=== PATIENT | female | born 1955 | race Caucasian/White ===

== ENCOUNTER 2020-12-18 16:14 | Inpatient (IN) ==
[2020-12-18 17:00] LABS: ABS Lymphocytes 0.5 10^3/ul (1.0-4.8); ABS Monocytes 0.4 10^3/ul (0-0.8); ABS Neutrophils 13.6 10^3/ul (1.5-7.7); Hematocrit 30 % (35-47); Hemoglobin 10.1 g/dL (12.0-16.0); Lymphocyte % 3.5 %; Mean Corpuscular HGB Conc 33 g/dL (31-36); Mean Corpuscular Hemoglobin 31 pg (27-31); Mean Corpuscular Volume 92 fL (80-97); Mean Platelet Volume 7.5 fL (7.4-10.4); Platelet Count 423 10^3/uL (150-450); Red Blood Count 3.29 10^6 /uL (3.70-4.87); Red Cell Distribution Width 14 % (10-15); White Blood Count 14.6 10^3/uL (3.5-10.8)
[2020-12-18 17:42] LABS: Albumin 3.3 g/dL (3.2-5.2); Albumin/Globulin Ratio 0.8 (1-3); C Reactive Protein 214.38 mg/L (<8.01); Calcium 9.4 mg/dL (8.6-10.3); Total Bilirubin 0.6 mg/dL (0.2-1.0); Total Protein 7.3 g/dL (6.4-8.9)
[2020-12-18] MEDS ORDERED: Morphine 4 MG/ML VIAL (1 ml) IV ONE ×2 (19:05→22:57)
[2020-12-18 19:45] LABS: Erythrocyte Sed Rate 95 mm/Hr (0-29)
[2020-12-18] MEDS ORDERED: Gadoteridol (CONTRAST) 279.3 MG/ML 10 ML IV ONE (20:33)
[2020-12-18] MEDS ORDERED: Vancomycin 1,500 MG in NS 0.9% 250 ml 250 ML IVPB ONE (22:09)
[2020-12-18] MEDS ORDERED: Piperacillin/Tazobac ADVAN 3.375 GM in NS 0.9% 100 ml BAG 100 ML IV ONE (22:10)
[2020-12-18] MEDS ORDERED: NS 0.9% 250 ml 250 ML ONE (22:21)
[2020-12-18] MEDS ORDERED: Vancomycin per Pharmacy 1 EA NOTE FOLLOW UP SCH (23:45)
[2020-12-18] MEDS ORDERED: NS 0.9% 1000 ml BAG 1,000 ML IV SCH (23:45)
[2020-12-18] MEDS ORDERED: Ondansetron 4 mg VIAL 2 MG/ML 2 ml VIAL IV PRN (23:46)
[2020-12-18] MEDS ORDERED: Vancomycin 1,000 MG in NS 0.9% 250 ml 250 ML IVPB ONE (23:46)
[2020-12-19] LABS: HIV 4th Generation Nonreactive (Nonreactive)
[2020-12-19] MEDS: Morphine 2 MG/ML SYRINGE IV PRN ×3 (00:46→20:03)
[2020-12-19] MEDS ORDERED: Vancomycin 1000 MG in NS 0.9% 250 ML IVPB SCH (01:00)
[2020-12-19] MEDS: Cefepime 2 GM in Dextrose 2 GM/50 ML BAG IV SCH ×3 (02:17→19:45)
[2020-12-19] MEDS: Vancomycin 1000 MG in NS 0.9% 250 ML IVPB SCH ×3 (07:45→23:37)
[2020-12-19 08:43] LABS: ABS Lymphocytes 1.2 10^3/ul (1.0-4.8); ABS Monocytes 0.8 10^3/ul (0-0.8); ABS Neutrophils 9.7 10^3/ul (1.5-7.7); Eosinophil % 0.2 %; Hematocrit 26 % (35-47); Hemoglobin 8.9 g/dL (12.0-16.0); Lymphocyte % 9.8 %; Mean Corpuscular HGB Conc 34 g/dL (31-36); Mean Corpuscular Hemoglobin 31 pg (27-31); Mean Corpuscular Volume 91 fL (80-97); Mean Platelet Volume 7.4 fL (7.4-10.4); Platelet Count 363 10^3/uL (150-450); Red Cell Distribution Width 14 % (10-15); White Blood Count 11.7 10^3/uL (3.5-10.8)
[2020-12-19 08:53] LABS: INR 1.36 (0.82-1.09)
[2020-12-19] MEDS: oxyCODONE/Acetamin 5/325 mg TAB PO PRN ×3 (08:55→22:06)
[2020-12-19 08:56] LABS: Calcium 8.7 mg/dL (8.6-10.3); EGFR African American 107.6 (>60); EGFR Non-African American 88.9 (>60); Potassium 3.5 mmol/L (3.5-5.0)
[2020-12-19 16:09] LABS: Total Iron Binding Capacity 202 mcg/dL (250-450); Transferrin 144 mg/dL (203-362)
[2020-12-19 16:13] LABS: Ferritin 123.7 ng/mL (11-307)
[2020-12-19 16:17] LABS: % Iron Saturation 10 % (15-55); Iron < 20 ug/dL (50-212); Unsaturated Iron Binding < 187 ug/dL
[2020-12-19 16:20] LABS: Folate 16.82 ng/mL (5.90-24.80)
[2020-12-19 16:21] LABS: Vitamin B12 686 pg/mL (180-914)
[2020-12-19] MEDS: HYDROmorphone 1 MG/1 ML SYRINGE IV SLOW PU PRN (22:04)
[2020-12-20] MEDS: HYDROmorphone 1 MG/1 ML SYRINGE IV SLOW PU PRN ×4 (01:39→13:31)
[2020-12-20] MEDS: Cefepime 2 GM in Dextrose 2 GM/50 ML BAG IV SCH ×3 (01:41→19:30)
[2020-12-20] MEDS: oxyCODONE/Acetamin 5/325 mg TAB PO PRN ×5 (05:13→23:30)
[2020-12-20] MEDS ORDERED: Vancomycin Trough Check NOTE FOLLOW UP ONE (07:30)
[2020-12-20] MEDS: Vancomycin 1000 MG in NS 0.9% 250 ML IVPB SCH ×3 (10:51→23:29)
[2020-12-21] MEDS: Cefepime 2 GM in Dextrose 2 GM/50 ML BAG IV SCH ×3 (02:17→18:22)
[2020-12-21] MEDS: HYDROmorphone 1 MG/1 ML SYRINGE IV SLOW PU PRN ×3 (02:18→17:25)
[2020-12-21] MEDS: oxyCODONE/Acetamin 5/325 mg TAB PO PRN ×5 (04:02→20:28)
[2020-12-21 04:56] LABS: ABS Eosinophils 0.1 10^3/ul (0-0.6); ABS Lymphocytes 1.3 10^3/ul (1.0-4.8); ABS Monocytes 0.9 10^3/ul (0-0.8); ABS Neutrophils 9.6 10^3/ul (1.5-7.7); Eosinophil % 1.2 %; Hematocrit 29 % (35-47); Hemoglobin 9.9 g/dL (12.0-16.0); Lymphocyte % 10.8 %; Mean Corpuscular HGB Conc 34 g/dL (31-36); Mean Corpuscular Hemoglobin 31 pg (27-31); Mean Corpuscular Volume 91 fL (80-97); Mean Platelet Volume 7.3 fL (7.4-10.4); Platelet Count 461 10^3/uL (150-450); Red Blood Count 3.19 10^6 /uL (3.70-4.87); Red Cell Distribution Width 14 % (10-15)
[2020-12-21 05:13] LABS: Calcium 8.9 mg/dL (8.6-10.3); EGFR African American 122.2 (>60); Magnesium 2.2 mg/dL (1.9-2.7); Potassium 3.4 mmol/L (3.5-5.0)
[2020-12-21] MEDS: Vancomycin 1000 MG in NS 0.9% 250 ML IVPB SCH ×3 (07:51→23:51)
[2020-12-21] MEDS ORDERED: fentaNYL 100 mcg/2 ml 50 MCG/ML VIAL ONE (12:10)
[2020-12-21] MEDS ORDERED: Magnesium Hydroxide LIQ 30 ML UDC PO PRN (14:06)
[2020-12-21] MEDS ORDERED: Senna TAB 8.6 mg TAB PO PRN (14:06)
[2020-12-21] MEDS ORDERED: Polyethylene Glycol 3350 17 GM PACKET PO PRN (14:06)
[2020-12-21 17:37] LABS: TB1 Ag minus Nil Result 0.01 IU/mL
[2020-12-21 17:44] LABS: QuantiferonTb Gold Plus Result Negative (Negative)
[2020-12-22] MEDS: oxyCODONE/Acetamin 5/325 mg TAB PO PRN ×5 (00:23→21:04)
[2020-12-22] MEDS: Cefepime 2 GM in Dextrose 2 GM/50 ML BAG IV SCH ×2 (01:40→10:16)
[2020-12-22] MEDS: HYDROmorphone 1 MG/1 ML SYRINGE IV SLOW PU PRN ×2 (05:38→15:08)
[2020-12-22] MEDS ORDERED: Vancomycin Trough Check NOTE FOLLOW UP ONE (07:30)
[2020-12-22 07:38] LABS: ABS Eosinophils 0.1 10^3/ul (0-0.6); ABS Monocytes 0.7 10^3/ul (0-0.8); ABS Neutrophils 6.7 10^3/ul (1.5-7.7); Eosinophil % 0.8 %; Hematocrit 29 % (35-47); Hemoglobin 10.1 g/dL (12.0-16.0); Lymphocyte % 11.6 %; Mean Corpuscular HGB Conc 35 g/dL (31-36); Mean Corpuscular Hemoglobin 31 pg (27-31); Mean Corpuscular Volume 91 fL (80-97); Mean Platelet Volume 7.4 fL (7.4-10.4); Platelet Count 468 10^3/uL (150-450); Red Blood Count 3.21 10^6 /uL (3.70-4.87); Red Cell Distribution Width 13 % (10-15); White Blood Count 8.4 10^3/uL (3.5-10.8)
[2020-12-22 07:48] LABS: Calcium 9.3 mg/dL (8.6-10.3); EGFR African American 119.9 (>60); EGFR Non-African American 99.1 (>60); Magnesium 2.2 mg/dL (1.9-2.7); Potassium 3.5 mmol/L (3.5-5.0)
[2020-12-22] MEDS: cefTRIAXone 2 GM ADDV.VIAL 2 GM in NS 0.9% 100 ml BAG 100 ML IV SCH (10:21)
[2020-12-22] MEDS: Vancomycin 1000 MG in NS 0.9% 250 ML IVPB SCH (10:50)
[2020-12-22 11:52] LABS: C Reactive Protein 182.64 mg/L (<8.01)
[2020-12-22] MEDS: Vancomycin 1,250 MG in NS 0.9% 250 ml 250 ML IVPB SCH (21:10)
[2020-12-22] MEDS: Enoxaparin 40 MG/0.4 ML SYR SUBCUT SCH (22:21)
[2020-12-23] MEDS: oxyCODONE/Acetamin 5/325 mg TAB PO PRN ×6 (00:57→21:52)
[2020-12-23] MEDS: HYDROmorphone 1 MG/1 ML SYRINGE IV SLOW PU PRN ×2 (08:48→12:10)
[2020-12-23] MEDS: Vancomycin 1,250 MG in NS 0.9% 250 ml 250 ML IVPB SCH ×2 (08:48→21:57)
[2020-12-23 10:04] LABS: ABS Lymphocytes 1.1 10^3/ul (1.0-4.8); ABS Monocytes 0.6 10^3/ul (0-0.8); ABS Neutrophils 5.8 10^3/ul (1.5-7.7); Eosinophil % 0.5 %; Hematocrit 28 % (35-47); Hemoglobin 9.6 g/dL (12.0-16.0); Lymphocyte % 14.4 %; Mean Corpuscular HGB Conc 35 g/dL (31-36); Mean Corpuscular Hemoglobin 32 pg (27-31); Mean Corpuscular Volume 91 fL (80-97); Mean Platelet Volume 7.2 fL (7.4-10.4); Nucleated Red Blood Cells % 0.3; Platelet Count 434 10^3/uL (150-450); Red Blood Count 3.04 10^6 /uL (3.70-4.87); Red Cell Distribution Width 14 % (10-15); White Blood Count 7.6 10^3/uL (3.5-10.8)
[2020-12-23] MEDS: cefTRIAXone 2 GM ADDV.VIAL 2 GM in NS 0.9% 100 ml BAG 100 ML IV SCH (10:22)
[2020-12-23 10:24] LABS: Calcium 9.2 mg/dL (8.6-10.3); EGFR African American 135.1 (>60); EGFR Non-African American 111.6 (>60); Potassium 4.1 mmol/L (3.5-5.0)
[2020-12-23] MEDS ORDERED: Magnesium CITRATE LIQ 300 ML BTL PO ONE (13:21)
[2020-12-23] MEDS: Magnesium Hydroxide LIQ 30 ML UDC PO SCH (21:46)
[2020-12-23] MEDS: Senna TAB 8.6 mg TAB PO SCH (21:46)
[2020-12-23] MEDS: Enoxaparin 40 MG/0.4 ML SYR SUBCUT SCH (21:55)
[2020-12-24] MEDS: HYDROmorphone 1 MG/1 ML SYRINGE IV SLOW PU PRN (04:26)
[2020-12-24] MEDS: oxyCODONE/Acetamin 5/325 mg TAB PO PRN ×5 (05:12→21:31)
[2020-12-24] MEDS: Magnesium Hydroxide LIQ 30 ML UDC PO SCH ×2 (08:08→20:51)
[2020-12-24] MEDS: Vancomycin 1,250 MG in NS 0.9% 250 ml 250 ML IVPB SCH ×2 (08:19→20:48)
[2020-12-24 08:32] LABS: ABS Eosinophils 0.1 10^3/ul (0-0.6); ABS Lymphocytes 1.1 10^3/ul (1.0-4.8); ABS Monocytes 0.5 10^3/ul (0-0.8); ABS Neutrophils 4.8 10^3/ul (1.5-7.7); Hematocrit 29 % (35-47); Hemoglobin 9.5 g/dL (12.0-16.0); Lymphocyte % 16.5 %; Mean Corpuscular HGB Conc 34 g/dL (31-36); Mean Corpuscular Hemoglobin 30 pg (27-31); Mean Corpuscular Volume 91 fL (80-97); Mean Platelet Volume 6.9 fL (7.4-10.4); Platelet Count 477 10^3/uL (150-450); Red Blood Count 3.15 10^6 /uL (3.70-4.87); Red Cell Distribution Width 14 % (10-15); White Blood Count 6.6 10^3/uL (3.5-10.8)
[2020-12-24 08:48] LABS: Albumin/Globulin Ratio 0.8 (1-3); Calcium 9.2 mg/dL (8.6-10.3); EGFR African American 132.3 (>60); EGFR Non-African American 109.3 (>60); Globulin 3.8 g/dL (2-4); Potassium 3.9 mmol/L (3.5-5.0); Total Bilirubin 0.4 mg/dL (0.2-1.0); Total Protein 6.8 g/dL (6.4-8.9)
[2020-12-24] MEDS: cefTRIAXone 2 GM ADDV.VIAL 2 GM in NS 0.9% 100 ml BAG 100 ML IV SCH (10:24)
[2020-12-24] MEDS: Enoxaparin 40 MG/0.4 ML SYR SUBCUT SCH (20:47)
[2020-12-24] MEDS: Senna TAB 8.6 mg TAB PO SCH (20:52)
[2020-12-25] MEDS: oxyCODONE/Acetamin 5/325 mg TAB PO PRN ×4 (01:41→17:48)
[2020-12-25 06:09] LABS: ABS Basophils 0.1 10^3/ul (0-0.2); ABS Eosinophils 0.1 10^3/ul (0-0.6); ABS Lymphocytes 1.5 10^3/ul (1.0-4.8); ABS Monocytes 0.6 10^3/ul (0-0.8); ABS Neutrophils 4.8 10^3/ul (1.5-7.7); Eosinophil % 1.1 %; Hematocrit 30 % (35-47); Hemoglobin 10.2 g/dL (12.0-16.0); Lymphocyte % 21.3 %; Mean Corpuscular HGB Conc 34 g/dL (31-36); Mean Corpuscular Hemoglobin 31 pg (27-31); Mean Corpuscular Volume 91 fL (80-97); Mean Platelet Volume 6.9 fL (7.4-10.4); Platelet Count 545 10^3/uL (150-450); Red Blood Count 3.31 10^6 /uL (3.70-4.87); Red Cell Distribution Width 14 % (10-15)
[2020-12-25 06:41] LABS: Albumin 3.3 g/dL (3.2-5.2); Albumin/Globulin Ratio 0.8 (1-3); Calcium 9.6 mg/dL (8.6-10.3); EGFR African American 113.4 (>60); EGFR Non-African American 93.7 (>60); Potassium 4.1 mmol/L (3.5-5.0); Total Bilirubin 0.4 mg/dL (0.2-1.0); Total Protein 7.3 g/dL (6.4-8.9)
[2020-12-25] MEDS: Magnesium Hydroxide LIQ 30 ML UDC PO SCH ×2 (07:46→20:35)
[2020-12-25] MEDS ORDERED: Vancomycin Trough Check NOTE FOLLOW UP ONE (08:30)
[2020-12-25] MEDS: Vancomycin 1,250 MG in NS 0.9% 250 ml 250 ML IVPB SCH ×2 (09:19→20:55)
[2020-12-25] MEDS: cefTRIAXone 2 GM ADDV.VIAL 2 GM in NS 0.9% 100 ml BAG 100 ML IV SCH (11:41)
[2020-12-25] MEDS ORDERED: oxyCODONE/Acetamin 5/325 mg TAB PO PRN (18:28)
[2020-12-25] MEDS ORDERED: HYDROmorphone 1 MG/1 ML SYRINGE IV SLOW PU PRN (18:42)
[2020-12-25] MEDS: Senna TAB 8.6 mg TAB PO SCH (20:33)
[2020-12-25] MEDS: oxyCODONE SR 20 mg TAB PO SCH (20:34)
[2020-12-25] MEDS: Enoxaparin 40 MG/0.4 ML SYR SUBCUT SCH (20:37)
[2020-12-26] MEDS: oxyCODONE/Acetamin 5/325 mg TAB PO PRN ×3 (00:24→17:56)
[2020-12-26 05:36] LABS: ABS Lymphocytes 1.1 10^3/ul (1.0-4.8); ABS Monocytes 0.5 10^3/ul (0-0.8); ABS Neutrophils 4.8 10^3/ul (1.5-7.7); Eosinophil % 0.7 %; Hematocrit 28 % (35-47); Hemoglobin 9.6 g/dL (12.0-16.0); Lymphocyte % 17.5 %; Mean Corpuscular HGB Conc 34 g/dL (31-36); Mean Corpuscular Hemoglobin 31 pg (27-31); Mean Corpuscular Volume 91 fL (80-97); Mean Platelet Volume 6.8 fL (7.4-10.4); Platelet Count 474 10^3/uL (150-450); Red Cell Distribution Width 14 % (10-15); White Blood Count 6.5 10^3/uL (3.5-10.8)
[2020-12-26 06:05] LABS: Albumin 3.1 g/dL (3.2-5.2); Albumin/Globulin Ratio 0.8 (1-3); Calcium 9.5 mg/dL (8.6-10.3); Globulin 3.8 g/dL (2-4); Potassium 4.3 mmol/L (3.5-5.0); Total Bilirubin 0.4 mg/dL (0.2-1.0); Total Protein 6.9 g/dL (6.4-8.9)
[2020-12-26] MEDS: oxyCODONE SR 20 mg TAB PO SCH ×2 (08:37→21:15)
[2020-12-26] MEDS: Magnesium Hydroxide LIQ 30 ML UDC PO SCH ×2 (08:37→21:16)
[2020-12-26] MEDS: Vancomycin 1,250 MG in NS 0.9% 250 ml 250 ML IVPB SCH ×2 (09:38→21:13)
[2020-12-26] MEDS: cefTRIAXone 2 GM ADDV.VIAL 2 GM in NS 0.9% 100 ml BAG 100 ML IV SCH (12:07)
[2020-12-26] MEDS: Senna TAB 8.6 mg TAB PO SCH (21:16)
[2020-12-26] MEDS: Enoxaparin 40 MG/0.4 ML SYR SUBCUT SCH (21:18)
[2020-12-27] MEDS: oxyCODONE/Acetamin 5/325 mg TAB PO PRN ×3 (01:38→13:42)
[2020-12-27 08:09] LABS: C Reactive Protein 118.03 mg/L (<8.01)
[2020-12-27] MEDS: oxyCODONE SR 20 mg TAB PO SCH (10:18)
[2020-12-27] MEDS: Magnesium Hydroxide LIQ 30 ML UDC PO SCH (10:19)
[2020-12-27] MEDS: Vancomycin 1,250 MG in NS 0.9% 250 ml 250 ML IVPB SCH ×2 (10:19→10:52)
[2020-12-27] MEDS: cefTRIAXone 2 GM ADDV.VIAL 2 GM in NS 0.9% 100 ml BAG 100 ML IV SCH ×2 (10:20→12:35)
[2020-12-27 11:22] VITALS: BP 111/50
[2020-12-28] MEDS ORDERED: Vancomycin Trough Check NOTE FOLLOW UP ONE (08:30)
== END 2020-12-27 13:45 | disposition swing bed (61) | DRG 49 ==
LOC: ED 16:14 → SSU 23:39
PROVIDERS: ADMIT Internal Medicine; ATTEND Internal Medicine